=== PATIENT | female | born 1955 | race Caucasian/White ===

== ENCOUNTER 2016-07-16 12:37 | Inpatient (IN) | payer OTHER ==
--- NOTE | ~2016-07-16 | CT57 ---
[facility] A Service of [facility] RADIOLOGY TEXT RESULTS PATIENT: LAURIE UP LOCATION: [facility] 341- : 57 UNIT #: [id number] AGE: [address]: Maine Lang MD SEX: F ORDER DR: [id number] [facility] [address] [place], [place] [address] [id number] I MR#: [id number] Acc #: [id number] NAME: LAURIE UP : 1955 SEX: F STUDY DATE/TIME: 07/18/2016 14:14 UNIT: [address] ROOM: [facility] STUDY DESCRIPTION: CT Chest Wo Cont Attending Physician: Maine Lang M.D. Ordering Physician: Maine Lang M.D. Primary Care Physician: Mikey Knight M.D. MEDICAL IMAGING REPORT This report is preliminary unless electronic signature is present EXAM CT of the chest without contrast. DATE OF EXAM 07/18/2016 INDICATIONS Right-sided chest pain, shortness breath for [address] images were obtained from the thoracic inlet through the dome of the diaphragm. No intravenous contrast material was administered. NOTE: This CT exam was performed with one or more of the following radiation dose reduction techniques: automatic exposure control, adjustment of mA and/or kV according to patient size, and iterative reconstruction. FINDINGS Since the prior examination, a right-sided chest tube has been placed which curves over the diaphragm and is directed posteriorly into the right hemithorax. Right pleural effusion is noted. However, it is difficult to differentiate it from adjacent lung. There is worsening consolidation within the right lung some of which may be related to pleural fluid, but I think some of it may simply reflect airspace disease. Certainly there is now complete obstruction of the patient's bronchus to the right lower lobe. Full assessment is limited due to the lack of intravenous contrast material as well as the patient's body habitus. Background emphysematous changes are suspected. There is left basilar atelectasis and possibly trace left pleural effusion. Thyroid gland and trachea appear within normal limits. There is a small hiatal hernia. I think the thoracic aorta measures within normal size limits. Mediastinal lymph nodes, I do not think are pathologically enlarged. Images through the upper abdomen again demonstrate a right renal cyst. I do not see any acute STS. [facility] A Service of [facility] RADIOLOGY TEXT RESULTS PATIENT: LAURIE UP LOCATION: A 341-01 : 57 UNIT #: [id number] AGE: [address]: Maine Lang MD SEX: F ORDER DR: abnormalities within the upper abdomen. Review of bony windows does not demonstrate any aggressive osseous abnormalities. IMPRESSION This patient has increasing opacification of the right hemithorax when compared to the prior study from July 16, 2016. There has been interval placement of a right-sided chest tube. Volume of pleural fluid I think is probably stable, and I think the opacification may be due to increasing consolidation within the right lung, especially given complete obstruction of the bronchus to the right lower lobe. Patient potentially may benefit from bronchoscopy, if not previously performed. Please note exam is difficult to interpret due to both the patient's body habitus and exam technique. Please see the body of the report for any other additional incidental findings. Dictated by... Iveth Monroy M.D. THIS IS AN ELECTRONICALLY VERIFIED REPORT Iveth Monroy M.D. at 07/19/2016 1:37 PM AFF/jcelestino TD: 07/18/2016 15:52 JOB #: [id number] MEDICAL IMAGING REPORT COPY
--- NOTE | ~2016-07-16 | CR72 ---
[facility] A Service of [facility] RADIOLOGY TEXT RESULTS PATIENT: LAURIE UP LOCATION: [address] : [birth year] UNIT #: [id number] AGE: [address]: Maine Lang MD SEX: F ORDER DR: [id number] [facility] [address] [place], [place] [address] [id number] I MR#: [id number] Acc #: [id number] NAME: LAURIE UP. : 1955 SEX: F STUDY DATE/TIME: 07/21/2016 15:19 UNIT: [facility] ROOM: [facility] STUDY DESCRIPTION: CR Chest Single View Portable Attending Physician: Maine Lang M.D. Ordering Physician: Brandt Fung M.D. Primary Care Physician: Mikey Knight M.D. MEDICAL IMAGING REPORT This report is preliminary unless electronic signature is present EXAM Portable chest HISTORY ETT placement. Postop thoracotomy. Pleural effusion. FINDINGS ETT tip is approximately 2 cm above the cal, with its tip partly obscured by overlying monitor lead. 2 right chest tubes extend over the right upper lung. Small right pleural effusion with [id number] atelectasis or infiltrate in the right lower lung and improved aeration of the right lung as compared to earlier today. There is probably minimal atelectasis or scarring in the lateral left base. Dictated by... Kahlil Snyder M.D. THIS IS AN ELECTRONICALLY VERIFIED REPORT Kahlil Snyder M.D. at 07/21/2016 11:38 PM DFL/psc TD: 07/21/2016 18:35 JOB #: [id number] MEDICAL IMAGING REPORT COPY
--- NOTE | ~2016-07-16 | DS ---
Unit #: [id number] #: [id number] Patient: LAURIE UP [id number] [address] [place], [place] [address] [id number] I MR#: [id number] NAME: LAURIE UP ROOM: [facility] Age: 60 Sex: F Admission Date: 07/16/2016 : 1955 Discharge Date: 07/26/2016 Attending Physician: Jamie Son M.D. Primary Care Physician: Mikey Knight M.D. DISCHARGE SUMMARY ADDENDUM The patient did go down on 07/21/2016 for flexible fiberoptic bronchoscopy with right video-assisted thoracoscopy and decortication. The patient had placement of two #28 chest tubes. She was intubated for the procedure and remained intubated until the 07/22/2016, at which time, she was extubated without difficulty. The patient has done very well postoperatively. Her acute hypoxic respiratory failure has continued to improve and at this time, she is saturating 92% on room air. Her chest tubes had been removed and chest x-ray this morning shows a stable right lower lobe infiltrate with a right pleural effusion. Ultimately, the patient's cultures grew strep milleri. Her antibiotics were revised such that she is now being sent home on oral Augmentin. The patient is up and ambulating without difficulty. She will have a home O2 evaluation to determine if she needs oxygen with exertion. This will be provided should it be needed. She is being discharged home with home health for PT and OT. She will follow up with Dr. Brandt Fung on 08/08/2016. DISCHARGE MEDICATIONS Bupropion 200 mg p.o. b.i.d., Prozac 20 mg daily, Xanax 1 mg p.o. b.i.d. p.r.n., Norvasc 10 mg daily, Lopressor 25 mg p.o. b.i.d., Zocor 20 mg p.o. q.h.s., ibuprofen 800 mg p.o. q.8 hours p.r.n., hydrocodone/acetaminophen 10/325 one p.o. q.6 hours p.r.n., Prilosec 20 mg p.o. daily, Flexeril 10 mg p.o. q.h.s., Synthroid 0.05 mg p.o. daily, Augmentin 875 mg one p.o. b.i.d. x18 more days. FOLLOWUP As mentioned, the patient will follow up with Dr. Brandt Fung on 08/08/2016 with a chest x-ray done in the morning prior to the appointment. Additionally, she should follow up with Dr. Cher Calderon at the end of antibiotic course. Dictated by... Rainer Cardenas/apoorva Unit #: [id number] #: [id number] Patient: LAURIE UP TD: 07/29/2016 03:06 JOB #: [id number] DISCHARGE SUMMARY X Jamie Son MD X DISCHARGE SUMMARY
--- NOTE | ~2016-07-16 | EKG ---
PATIENT: LAURIE UP UNIT #: [id number] Ventricular Rate: 88 BPM Atrial Rate: 88 BPM P-R Interval: 170 ms QRS Duration: 92 ms Q-T Interval: 374 ms QTC Calculation(Bezet): 452 ms P Madison: 19 degrees Calculated R Madison: 53 degrees Calculated T Madison: 14 degrees Diagnosis Line: Normal sinus rhythm Diagnosis Line: Normal ECG Diagnosis Line: When compared with ECG of 13-JUL-2016 17:13, Diagnosis Line: (unconfirmed) Diagnosis Line: No significant change was found Diagnosis Line: Confirmed by ANITRA JACOBSON MD ([id number]) on 07/17/2016 Diagnosis Line: 7:17:07 AM INTERPRETING MD: INDIRA PALOMARES
--- NOTE | ~2016-07-16 | CO ---
Unit #: [id number] #: [id number] Patient: LAURIE UP [id number] [address] [place], [place] [address] [id number] I MR#: [id number] NAME: LAURIE UP. ROOM: 341 Age: 60 Sex: F Admission Date: 07/16/2016 : 1955 Attending Physician: Maine Lang M.D. Primary Care Physician: Mikey Knight M.D. Consultation Date: 07/17/2016 CONSULTATION REPORT REASON FOR CONSULTATION Dysphagia. HISTORY Ms. Up is a 60-year-old white female who presented with a history of increasing shortness of breath and found to have right sided large pleural effusion. She is status post placement of a chest tube and thoracentesis and underlying empyema on a background of pneumonia has been suspected. She also mentions a history of dysphagia to solids progressively getting worse for the past six months. There is also some problem with liquids lately. She denies any history of weight loss. At the present time, the patient is having local pain from the chest tube insertion and is less concerned about dysphagia than about the fact that she has shortness of breath. In fact, her initial presentation was increasing shortness of breath and pleuritic pain on the right side along with right shoulder pain. She also had chills and low grade fever. PAST MEDICAL HISTORY Significant for: 1. Hypertension. 2. Depression. 3. Fibromyalgia. PAST SURGICAL HISTORY Previous surgeries include: 1. Tonsillectomy. 2. Tubal ligation. SOCIAL HISTORY The patient does not smoke and drinks occasionally. FAMILY HISTORY None of colon, pancreatic cancer of liver disease. There is a history of heart disease in the family. MEDICATIONS Medications at home included: 1. Paxil. 2. Zocor. 3. Prilosec. 4. Cymbalta. 5. Lopressor. 6. Flexeril. 7. Norvasc. Unit #: [id number] #: [id number] Patient: LAURIE UP 8. Xanax. ALLERGIES She is allergic to penicillin. REVIEW OF SYSTEMS A detailed review of organ systems does not reveal any recent weight loss. There is a history of fever and chills but no rigors. No history of cough or expectoration but a history of shortness of breath. No history of hemoptysis, no history of dysuria, hematuria or pyuria. No history of overt GI bleed. No history of bolus meat impactions in the esophagus but a history of increasing dysphagia to solids. No history of skin rash, aphthous ulcers in the mouth or reactive arthritis. PHYSICAL EXAMINATION GENERAL APPEARANCE: She is awake, alert and oriented and laying supine, still in bed. VITAL SIGNS: Her temperature is 98, pulse is 95 per minute and regular, respiratory rate 16 and blood pressure is 121/71. She weighs 108 pounds. She has mild pallor, there being no icterus, lymphadenopathy or peripheral edema. CARDIOVASCULAR EXAMINATION: Normal heart sounds. No murmurs. LUNGS: Auscultation of the lungs reveal diminished air entry in the lung base, especially on the right side. ABDOMEN: Soft, minimally obese and nontender. Liver and spleen are not palpable. Bowel sounds normal. DIAGNOSTIC STUDIES LABORATORY: Lab evaluation shows a hemoglobin of 9.5, white count of 16,000 with a left shift and a platelet count of 505. INR is 1.0. Serum chemistry shows a normal BUN and creatinine and a potassium of 3.1. LFTs are normal. Albumin is 3.0. IMAGING: Her chest films suggest large pleural effusion along with atelectasis and a possibility of empyema. CLINICAL IMPRESSION 1. Patient with probably synpneumonic effusion or empyema, status post thoracentesis. 2. Underlying hypertension and fibromyalgia. 3. New onset of dysphagia for the past six months which is getting worse particularly and is mostly present with solids. The patient may have esophageal stricture, either benign or malignant, and does need an upper endoscopy and a dilation for definitive diagnosis and treatment. She, however, wishes to wait for at least a day before proceeding with endoscopy. This is quite reasonable considering she had a chest tube insertion a short while ago. Thank you very much for asking me to see this pleasant woman. I appreciate the consult. Dictated byAshley Marion M.D. Unit #: [id number] #: [id number] Patient: LAURIE UP ALAINA/brigid TD: 07/18/2016 11:53 JOB #: [id number] CONSULTATION REPORT X Suraj Marion MD CONSULTATION REPORT
--- NOTE | ~2016-07-16 | CR63 ---
[facility] A Service of [facility] RADIOLOGY TEXT RESULTS PATIENT: LAURIE UP LOCATION: [facility] : 57 UNIT #: [id number] AGE: [address]: Low Mclaughlin MD SEX: F ORDER DR: [id number] [facility] [address] [place], [place] [address] [id number] E MR#: [id number] Acc #: [id number] NAME: LAURIE UP : 1955 SEX: F STUDY DATE/TIME: 07/16/2016 UNIT: [facility] ROOM: STUDY DESCRIPTION: CR Chest 2 View Attending Physician: Low Mclaughlin M.D. Ordering Physician: Low Mclaughlin M.D. Primary Care Physician: Mikey Knight M.D. MEDICAL IMAGING REPORT This report is preliminary unless electronic signature is present EXAM Chest 2 views 07/16/2016 at 13:20 hours HISTORY 60-year-old woman with 4-5 day history of fever, shortness of air and chills. COMPARISON 07/13/2016 FINDINGS Upright PA and lateral views of the chest demonstrates low lung volumes with prominence of the cardiac silhouette tortuous aorta unchanged. There is airspace density right greater than left lung base increased on the right, decreased on the left. There is a moderate right pleural effusion increased from 07/13/2016. Presence of right lower lobe pneumonia with parapneumonic effusion or empyema cannot be excluded. IMPRESSION Worsening airspace density at the right lung base and improving airspace density at the left lung base. There is an increasing right pleural effusion. Findings are concerning for right lower lobe pneumonia with parapneumonic effusion or empyema. Findings have progressed on the right since 07/13/2016. STAT * RESULT Dictated by... Betty Campbell M.D. [facility] A Service of [facility] RADIOLOGY TEXT RESULTS PATIENT: LAURIE UP [id number] 57 UNIT #: [id number] AGE: [address]: Low Mclaughlin MD SEX: F ORDER DR: THIS IS AN ELECTRONICALLY VERIFIED REPORT Betty Campbell M.D. at 07/16/2016 2:28 PM Luis TD: 07/16/2016 13:49 JOB #: [id number] MEDICAL IMAGING REPORT COPY
--- NOTE | ~2016-07-16 | CR72 ---
[facility] A Service of [facility] RADIOLOGY TEXT RESULTS PATIENT: LAURIE UP LOCATION: [facility] : 57 UNIT #: [id number] AGE: [address]: Maine Lang MD SEX: F ORDER DR: [id number] [facility] [address] [place], [place] [address] [id number] I MR#: [id number] Acc #: [id number] NAME: LAURIE UP. : 1955 SEX: F STUDY DATE/TIME: 07/17/2016 18:33 UNIT: [address] ROOM: [facility] STUDY DESCRIPTION: CR Chest Single View Portable Attending Physician: Maine Lang M.D. Ordering Physician: Maine Lang M.D. Primary Care Physician: Mikey Knight M.D. MEDICAL IMAGING REPORT This report is preliminary unless electronic signature is present EXAM AP radiograph of the chest. DATE OF EXAM 07/17/2016 HISTORY Chest tube placement. REPORT AP radiograph of the chest presented. COMPARISON Comparison from earlier on the same date. FINDINGS Interval placement of right pleural drain. Stable cardiomediastinal silhouette. The left lung is well inflated and clear. Decreased but not yet completely resolved right pleural effusion status post pleural drain placement. There is probably moderate volume pleural effusion remaining. Patchy and band-like densities in the underlying right lung probably atelectatic in nature and related to the pleural effusion. Mild soft tissue prominence in the right suprahilar region. Probably projectional artifact related to normal vascular structures. CT examination in of yesterday showed no significant adenopathy in this region. Continued attention at followup is recommended. There is no pneumothorax. Dictated by... Efrain Larios M.D. [facility] A Service of [facility] RADIOLOGY TEXT RESULTS PATIENT: LAURIE UP LOCATION: [facility] : 57 UNIT #: [id number] AGE: [address]: Maine Lang MD SEX: F ORDER DR: THIS IS AN ELECTRONICALLY VERIFIED REPORT Efrain Larios M.D. at 07/18/2016 2:12 PM Ernesto TD: 07/17/2016 21:49 JOB #: [id number] MEDICAL IMAGING REPORT COPY
--- NOTE | ~2016-07-16 | BMI ---
[facility] Nutrition Therapy DATE: 07/17/16 Patient: LAURIE UP Physician: FAYE Address: [address] [place] [address] Room/Bed: [address] [place] [address], Zip: [place] [address] Admit Date: 07/16/16 Date of : 57 Height: 5 3 Weight: 235 106.6 HIGH BMI NOTE: ANTHROPOMETRICS: Ht: 63" Wt: 106.6 kg BMI: 41.6 INTERVENTION: 1. NPO RECOMMENDATIONS: 1. Once medically feasible, resume heart healthy diet as tolerated in order to promote gradual weight loss. Respectfully, MARTIN STILL RD, LD Food and Nutritional Services [facility] cc: client file
--- NOTE | ~2016-07-16 | CT16 ---
[facility] A Service of [facility] RADIOLOGY TEXT RESULTS PATIENT: LAURIE UP LOCATION: [facility] 341-01 : 57 UNIT #: [id number] AGE: [address]: Maine Lang MD SEX: F ORDER DR: [id number] [facility] [address] [place], [place] [address] [id number] E MR#: [id number] Acc #: [id number] NAME: LAURIE UP. : 1955 SEX: F STUDY DATE/TIME: 07/16/2016 14:54 UNIT: [facility] ROOM: STUDY DESCRIPTION: CT Angio Chest for PE Attending Physician: Low Mclaughlin M.D. Ordering Physician: Low Mclaughlin M.D. Primary Care Physician: Mikey Knight M.D. MEDICAL IMAGING REPORT This report is preliminary unless electronic signature is present EXAM CT angiogram chest with IV contrast HISTORY Shortness of air. Fever and chills for [address] exam was performed with one or more of the following radiation dose reduction techniques: automatic control, adjustment of mA and/or kV according to patient size, and iterative reconstruction. FINDINGS IV contrast enhanced CT angiogram of the chest was performed with 3-D reconstructions. There is a moderate-sized right pleural effusion. Nearly complete atelectasis of the right lower lobe. Mild multifocal subsegmental linear atelectasis in the right upper lobe and, to a lesser degree in the medial and inferior left lower lobe. No pulmonary embolus. Normal caliber thoracic aorta. No mediastinal or hilar adenopathy. Small hiatal hernia. 4.2 cm cyst in the medial and upper pole of the right kidney. IMPRESSION 1. No pulmonary embolus. 2. Moderate-sized right pleural effusion with nearly complete atelectasis of the right lower lobe and additional mild multifocal subsegmental atelectasis in the right upper lobe and left lower lobe. 3. Small hiatal hernia. Dictated by... Kahlil Snyder M.D. [facility] A Service of [facility] & [facility] RADIOLOGY TEXT RESULTS PATIENT: LAURIE UP LOCATION: [facility] 341- : 57 UNIT #: [id number] AGE: [address]: Maine Lang MD SEX: F ORDER DR: THIS IS AN ELECTRONICALLY VERIFIED REPORT Kahlil Snyder M.D. at 07/17/2016 7:25 PM DFL/rnradha TD: 07/16/2016 17:02 JOB #: [id number] MEDICAL IMAGING REPORT COPY
--- NOTE | ~2016-07-16 | TOC ---
Unit #: [id number] #: [id number] Patient: LAURIE UP [id number] [address] [place], [place] [address] [id number] I MR#: [id number] NAME: LAURIE UP. ROOM: [facility] Age: 60 Sex: F Admission Date: 07/16/2016 : 1955 Attending Physician: Jamie Son M.D. Primary Care Physician: Mikey Knight M.D. TRANSFER OF CARE SUMMARY DATE July 20, 2016. REASON FOR ADMISSION Shortness of breath. HISTORY OF PRESENT ILLNESS/HOSPITAL COURSE The patient is a 60-year-old female, who presented secondary to respiratory distress. Initially, her white count was noted to be 16,000, hemoglobin 9.5. She underwent a CT angiogram of her chest which did reveal right-sided pleural effusion. Therefore, consultation was placed to Dr. Calderon. Pulmonary services, who after evaluation, placed consultation to Dr. Fung. After review, consideration for right pleural effusion as well as empyema was made. The patient underwent thoracentesis with only very little, approximately [address] Fung reviewed CT angiogram as well as CT chest without contrast on July 18, 2016. Chest tube was placed on the right side. At the present time, further management has been coordinated for the chest in consideration by thoracic surgery services. The patient's antibiotics are at the discretion of Dr. Calderon of pulmonary services. Today, her white count is now 23,800, hemoglobin is 9.4. Patient also stated that she had episodes of dysphagia. We placed consultation to Dr. Marion. He recommended upper GI endoscopy; however, the patient states that because of her right pleural effusion as well as empyema and compressive atelectasis, she stated that she would followup as an outpatient for her EGD and therefore, that has been placed on hold. DIAGNOSES At the present time, her current clinical diagnoses are as follows: 1. Acute respiratory failure. 2. Right-sided pleural effusion/empyema, status post chest tube placement as well as thoracentesis. Unit #: [id number] #: [id number] Patient: LAURIE UP 3. Dysphagia. 4. Obesity. 5. Compressive atelectasis. 6. Depression. Dictated by... Rainer Villa TD: 07/22/2016 10:20 JOB #: [id number] TRANSFER OF CARE SUMMARY X Maine Lang MD X TRANSFER OF CARE SUMMARY
--- NOTE | ~2016-07-16 | CR72 ---
[facility] A Service of [facility] & [facility] RADIOLOGY TEXT RESULTS PATIENT: LAURIE UP LOCATION: [facility] 341-01 : 57 UNIT #: [id number] AGE: [address]: Maine Lang MD SEX: F ORDER DR: [id number] [facility] [address] [place], [place] [address] [id number] I MR#: [id number] Acc #: [id number] NAME: LAURIE UP. : 1955 SEX: F STUDY DATE/TIME: 07/20/2016 6:11 UNIT: [address] ROOM: [facility] STUDY DESCRIPTION: CR Chest Single View Portable Attending Physician: Maine Lang M.D. Ordering Physician: Maine Lang M.D. Primary Care Physician: Mikey Knight M.D. MEDICAL IMAGING REPORT This report is preliminary unless electronic signature is present EXAM Portable chest. HISTORY Chest tube placement. COMPARISON 07/17/2016 FINDINGS AP portable view of the chest demonstrates a right chest tube or pleural drain in the right lung base, unchanged. Continued loss of the right hemidiaphragm blunting the right CP angle which may represent a small right effusion and right basilar atelectasis. Continued diffuse haziness over the right lung which may represent a combination of infiltrate or atelectasis. Left lung is clear, though overall lung volumes appear diminished. The heart and mediastinum are unremarkable. No visible pneumothorax. Dictated by... Oanh Vences M.D. THIS IS AN ELECTRONICALLY VERIFIED REPORT Oanh Vences M.D. at 07/20/2016 3:04 PM MILLA/dalton TD: 07/20/2016 13:42 JOB #: [id number] MEDICAL IMAGING REPORT COPY
--- NOTE | ~2016-07-16 | CR72 ---
[facility] A Service of [facility] RADIOLOGY TEXT RESULTS PATIENT: LAURIE UP LOCATION: [address] : [birth year] UNIT #: [id number] AGE: [address]: Jamie Son MD SEX: F ORDER DR: [id number] [facility] [address] [place], [place] [address] [id number] I MR#: [id number] Acc #: [id number] NAME: LAURIE UP : 1955 SEX: F STUDY DATE/TIME: 07/23/2016 6:43 UNIT: [facility] ROOM: [facility] STUDY DESCRIPTION: CR Chest Single View Portable Attending Physician: Jamie Son M.D. Ordering Physician: Brandt Fung M.D. Primary Care Physician: Mikey Knight M.D. MEDICAL IMAGING REPORT This report is preliminary unless electronic signature is present EXAM Frontal chest, 07/23/2016 INDICATION 60-year-old female with shortness of air for a week. Right-sided shoulder pain. Status post video assisted thoracoscopy procedure and right-sided chest tube placement on July 21. TECHNIQUE Frontal chest COMPARISON 07/22/2016 FINDINGS 2 right-sided chest tubes present. Cardiac silhouette enlarged but stable. Lung volumes remain low. Interstitial and alveolar opacities in the right lung and a right-sided effusion are unchanged. There is some patchy atelectasis or infiltrate in the left lung base not significantly changed. No pneumothorax. IMPRESSION 1. 2 right-sided chest tubes are present. There is no pneumothorax. 2. No other significant interval change. Dictated by... Fei Franz M.D. THIS IS AN ELECTRONICALLY VERIFIED REPORT Fei Franz M.D. at 07/24/2016 3:11 PM Simone TD: 07/23/2016 11:54 [facility] A Service of [facility] RADIOLOGY TEXT RESULTS PATIENT: LAURIE UP LOCATION: [id number] [id number] : [birth year] UNIT #: [id number] AGE: [address]: Jamie Son MD SEX: F ORDER DR: JOB #: [id number] MEDICAL IMAGING REPORT COPY
--- NOTE | ~2016-07-16 | XA203 ---
[facility] A Service of [facility] RADIOLOGY TEXT RESULTS PATIENT: LAURIE UP LOCATION: [facility] 341-01 : [birth year] UNIT #: [id number] AGE: [address]: Maine Lang MD SEX: F ORDER DR: [id number] [place] [address] [facility]. [place], [place] [address] [id number] I MR#: [id number] Acc #: [id number] NAME: LAURIE UP. : 1955 SEX: F STUDY DATE/TIME: 07/17/2016 16:01 UNIT: [address] ROOM: [facility] STUDY DESCRIPTION: XA Thoracentesis Attending Physician: Maine Lang M.D. Ordering Physician: Maine Lang M.D. Primary Care Physician: Mikey Knight M.D. MEDICAL IMAGING REPORT This report is preliminary unless electronic signature is present EXAM Ultrasound-guided right thoracentesis INDICATION 60-year-old female with right pleural effusion. TECHNIQUE The risks, benefits and alternatives of the procedure were discussed with the patient. Informed consent was obtained. In the procedure room, a time-out was performed confirming correct patient and procedure. All elements of maximum sterile-barrier technique utilized according to guidelines appropriate for the procedure. FINDINGS Ultrasound of the right posterior hemithorax was performed. This demonstrated a small right pleural effusion. The overlying skin was prepped and draped in the usual sterile fashion. 1% lidocaine was utilized to anesthetize the skin and underlying subcutaneous tissues. Next under ultrasound guidance, a 5-Ghanaian Yueh catheter was inserted into the pleural space and only 35 mL of serosanguineous fluid was able to be removed and it was sent to the lab for the requested studies. The needle was removed and a sterile dressing was applied. No immediate complications. IMPRESSION Technically successful diagnostic right thoracentesis. Dictated by... Riki Vences M.D. THIS IS AN ELECTRONICALLY VERIFIED REPORT [facility] A Service of [facility] RADIOLOGY TEXT RESULTS PATIENT: LAURIE UP LOCATION: [facility] 341-01 : [birth year] UNIT #: [id number] AGE: [address]: Maine Lang MD SEX: F ORDER DR: Riki Vences M.D. at 07/19/2016 7:45 AM STEVO/sukhdeep TD: 07/18/2016 09:42 JOB #: [id number] MEDICAL IMAGING REPORT COPY
--- NOTE | ~2016-07-16 | CO ---
Unit #: [id number] #: [id number] Patient: LAURIE UP [id number] [facility] [address] [facility] [place] [facility]. [place], [place] [address] [id number] I MR#: [id number] NAME: LAURIE UP. ROOM: 341 Age: 60 Sex: F Admission Date: 07/16/2016 : 1955 Attending Physician: Maine Lang M.D. Primary Care Physician: Mikey Knight M.D. Requesting Physician: Goi Ortiz M.D. Consultation Date: 07/17/2016 CONSULTATION REPORT The patient is a 60-year-old, white female, who was seen in the emergency room at [facility] on 07/13/2016, secondary to right chest and shoulder pain, along with some shortness of breath. She was felt at that time to have cervical radiculopathy and was discharged home on Prednisone. She presented to the [facility] emergency room on 07/16/2016 secondary to worsening right pleuritic chest pain and increased shortness of breath. A chest CT scan was obtained in her workup, which showed a moderate sized right pleural effusion with associated atelectasis of the lung. She was admitted to the hospital and placed on Rocephin and Zithromax. A right thoracentesis was performed today with only a small amount of fluid being obtained. The pH of the fluid, however, was 6.9 and in view of this, it was felt that we may be dealing with an empyema. I was asked to see the patient at this time for possible chest tube insertion. Her antibiotics were switched today to vancomycin and cefepime. ALLERGIES The patient is allergic to penicillin. PAST MEDICAL HISTORY She has a history of depression, fibromyalgia, and hypertension. PAST SURGICAL HISTORY Tubal ligation, tonsillectomy and adenoidectomy, and wiring of the jaw. SOCIAL HISTORY She denies smoking cigarettes. She drinks alcohol only occasionally. She denies using any illicit drugs. FAMILY HISTORY Positive for heart disease and cancer. HOME MEDICATIONS Xanax, Norvasc, Flexeril, Cymbalta, Lopressor, Prilosec, Zocor, and Paxil. REVIEW OF SYSTEMS Essentially negative except for those things stated in the present illness and past history. PHYSICAL EXAMINATION VITAL SIGNS: The patient's temperature is 99.3. The pulse is 92, respirations are 20 and blood pressure is 121/71. HEENT: Normocephalic without lesions. Pupils were equally round and reactive to light. Extraocular movements are full. Unit #: [id number] #: [id number] Patient: LAURIE UP NECK: Supple without adenopathy or jugular venous distention. LUNGS: Decreased breath sounds at the right base. HEART: Regular rhythm without murmurs. ABDOMEN: Soft and nontender without masses and with good bowel sounds. EXTREMITIES: No cyanosis or edema present. NEUROLOGIC: No focal neurologic deficits on exam. IMPRESSION 1. Probable right-sided pneumonia with associated right pleural effusion with a low pH of 6.9. One with have to worry about the possibility of an empyema. 2. History of depression. 3. Fibromyalgia. 4. History of hypertension. PLAN At this point to proceed with a right chest tube insertion to see if we can drain some additional fluid. If we can get the chest tube positioned in the fluid, we may consider then instilling tPA and Pulmozyme to help liquify the collection. Will also plan to await the cultures and cytology on the fluid that was sent. In the meantime, she will continue on IV antibiotics as ordered. Dictated by... Rainer Cheek/jose a TD: 07/18/2016 07:28 JOB #: [id number] CC: Cher Calderon M.D. CONSULTATION REPORT X Brandt Fung MD X CONSULTATION REPORT
--- NOTE | ~2016-07-16 | CO ---
Unit #: [id number] #: [id number] Patient: LAURIE UP [id number] [address] [place], [place] [address] [id number] I MR#: [id number] NAME: LAURIE UP. ROOM: 341 Age: 60 Sex: F Admission Date: 07/16/2016 : 1955 Attending Physician: Maine Lang M.D. Primary Care Physician: iMkey Knight M.D. Consultation Date: 07/18/2016 CONSULTATION REPORT REASON FOR CONSULTATION Pleural effusion. CHIEF COMPLAINT Shortness of breath. HISTORY 60-year-old female with a past medical history of depression, fibromyalgia, hypertension, who presents with a complain of cough, shortness of breath and increasing sputum production for the last two to three days, admitted with complaint of pleural effusion and pneumonia. I am seeing the patient at bedside complaining of shortness of breath and generalized weakness. No nausea, vomiting, diarrhea. No chest pain. REVIEW OF SYSTEMS Positive pallor. No edema. No cyanosis. No jaundice. The rest is as per history of present illness. The rest of the twelve point review of system has been reviewed and is negative. PAST MEDICAL HISTORY The patient had fibromyalgia and hypertension. PAST SURGICAL HISTORY Jaw wired, tonsillectomy, tubal ligation. SOCIAL HISTORY Nonsmoker. No alcohol. No drug abuse. FAMILY HISTORY Positive for heart disease and cancer. ALLERGIES Penicillin. HOME MEDICATIONS Xanax, Norvasc, Flexeril, Cymbalta, Lopressor, Prilosec, Zocor and Paxil. PHYSICAL EXAMINATION VITAL SIGNS: Temperature is 98, pulse 67, respirations 12, blood pressure 130/70. NEUROLOGIC: Awake, alert and oriented. No neuro deficit. HEENT: PERRLA. +1. NECK: Supple. CHEST: Bilateral air entry. Bilateral mild rhonchi. Unit #: [id number] #: [id number] Patient: LAURIE UP GI: Nontender, soft. Bowel sounds positive. EXTREMITIES: No edema. SKIN: No rashes, no ulcers. LYMPHATICS: No lymphadenopathy. MUSCULOSKELETAL: No deformity. DIAGNOSTIC STUDIES Labs and imaging has been reviewed. ASSESSMENT AND PLAN 1. Rule out empyema. 2. Right-sided pleural effusion. 3. (1) pneumonia. 4. Hypernatremia. 5. Hyperkalemia. PLAN 1. Admit the patient. 2. Continue broad spectrum IV antibiotics. 3. Thoracentesis today. 4. GI and DVT prophylaxis. 5. Patient will be closely monitored. 6. Please see orders for detailed plan. Thank you very much for this consultation. We will continue to monitor patient very closely. Dictated by... Rainer Wang/jose a TD: 07/18/2016 10:06 JOB #: [id number] CONSULTATION REPORT X Cher Calderon MD CONSULTATION REPORT
--- NOTE | ~2016-07-16 | CR72 ---
[facility] A Service of [facility] RADIOLOGY TEXT RESULTS PATIENT: LAURIE UP LOCATION: [place] [address] : [birth year] UNIT #: [id number] AGE: [address]: Jamie Son MD SEX: F ORDER DR: [id number] [facility] [address] [facility]. [place], [place] [address] [id number] I MR#: [id number] Acc #: [id number] NAME: LAURIE UP. : 1955 SEX: F STUDY DATE/TIME: 07/24/2016 9:28 UNIT: [facility] ROOM: [facility] STUDY DESCRIPTION: CR Chest Single View Portable Attending Physician: Jamie Son M.D. Ordering Physician: Rona Elliott A.P.R.N. Primary Care Physician: Mikey Knight M.D. MEDICAL IMAGING REPORT This report is preliminary unless electronic signature is present EXAM AP portable chest 07/24/2016. HISTORY Postop lung surgery. Chest tube removal. TECHNIQUE AP portable upright chest x-ray. FINDINGS The exam shows postop changes right lung surgery. 2 right chest tubes have been removed since the previous study obtained yesterday, there is no visible pneumothorax. Soft tissue air is present in the right lateral chest wall. Dense infiltrate and volume loss in the right lung base with elevation of the right hemidiaphragm, unchanged. Left lung clear. IMPRESSION No pneumothorax following chest tube removal. Dictated by... Aubrey Carrillo M.D. THIS IS AN ELECTRONICALLY VERIFIED REPORT Aubrey Carrillo M.D. at 07/24/2016 4:00 PM ESTRADA/leah TD: 07/24/2016 11:59 JOB #: [id number] MEDICAL IMAGING REPORT COPY
--- NOTE | ~2016-07-16 | OR ---
Unit #: [id number] #: [id number] Patient: LAURIE UP [id number] [address] [place], [place] [address] [id number] I MR#: [id number] NAME: LAURIE UP. ROOM: [facility] Date of Procedure: 07/21/2016 Admission Date: 07/16/2016 Surgeon: Brandt Fung M.D. : 1955 Attending Physician: Jamie Son M.D. Primary Care Physician: Mikey Knight M.D. OPERATIVE REPORT PREOPERATIVE DIAGNOSIS Right-sided pneumonia with a loculated right pleural effusion. POSTOPERATIVE DIAGNOSIS Right-sided pneumonia with a loculated right pleural effusion. PROCEDURES PERFORMED Flexible fiberoptic bronchoscopy; right video-assisted thoracoscopy with decortication. ANESTHESIA General. ESTIMATED BLOOD LOSS About 250 mL. DRAINS Two #28 chest tubes. COMPLICATIONS None. DESCRIPTION OF PROCEDURE The patient was taken to the operating room and placed on the operating room table in a supine position. After appropriate monitoring lines had been placed, general endotracheal anesthesia was then induced per the Anesthesia Department. Flexible fiberoptic bronchoscopy was performed per the endotracheal tube per a side-port adapter placed on the tube. There was some mild edema of the distal trachea and cal. There was some mild erythema of the mucosa of the left mainstem bronchus. The left upper lobe and left lower lobe were both examined to their subsegmental bronchi level and found to be within normal limits. The right upper lobe was examined to its subsegmental bronchi level and found to be within normal limits. The right middle lobe was found to be open and with only mild erythema of the mucosa. There was moderate erythema and edema of the mucosa of the right lower lobe with narrowing of the segmental bronchi. The bronchoscope was then removed. The single-lumen endotracheal tube was removed and replaced with a double-lumen endotracheal tube. Adequate positioning of this tube was ensured using the pediatric bronchoscope. The patient was placed on the operating room table in a left lateral decubitus position. A rolled sheet was placed beneath the left axillary area. The patient was secured in place on the operating room table using Unit #: [id number] #: [id number] Patient: LAURIE UP a roman bag as well as tape across the right hip. The right arm was supported on an arm support. The right chest tube that was in place was removed. The right chest was prepped with DuraPrep and draped in a sterile fashion. About a 5 to 6 cm skin incision was made in the anterior axillary line over the fifth intercostal space. The incision was carried down through the subcutaneous tissue with hemostasis being obtained using the Bovie. The muscle and fascial layers were also cut using the Bovie and the pleura that was somewhat thickened was entered and extended the full length of the incision. It should be stated that the patient had problems throughout the procedure maintaining good oxygen saturations on one-lung anesthesia, and we had to go back on two-lung anesthesia at times to catch up with her O2 saturations. The lung at the incision sites was gently dissected free from the chest wall. A suction catheter was then used to gently dissect the lung down from the chest wall. After the lung was freed up somewhat in the lower chest, a 1.5 cm skin incision was made in the posterior axillary line at about the 6 or 7th intercostal space. The incision was carried down through the subcutaneous tissue with hemostasis being obtained using the Bovie. A Tonsil clamp was used to enter the pleural space. It was estimated to be about the sixth intercostal space. A trocar introducer was inserted and the thoracoscope then passed per this trocar introducer. There was quite a lot of gelatinous exudative material present in the pleural space especially in the posterior gutter. There was also a somewhat fibrous peel covering the lower portion of the right upper lobe and almost the entire right lower lobe and right middle lobe. A large cupped forceps was used to remove as much of the free gelatinous material from the pleural space. Portions of this material were sent for cytology as well as cultures. A Tonsil clamp was used to separate some of the pleural peel from the lung, and this was further using a Lyles dissector. As the pleural peel was freed up from the lung, it was removed from the chest using the large cupped biopsy forceps. At the completion of the procedure, most of the pleural space had been cleared of the collection and the lung had been freed up from the pleural peel in most of the areas except for a small amount at the inferior portion where most of the consolidation and infiltrate in the lung was present. After adequate hemostasis had been ensured, the chest was irrigated with warm sterile water. This process was repeated about 3 times. Following this, two #28 chest tubes were inserted and brought out through separate stab wounds in the lower chest. They were sutured in place to the skin using 2-0 silk suture. The incision was then closed using 0 Vicryl for the muscle and fascial layer, the subcutaneous tissue was closed using running layers of 2-0 and 3-0 Vicryl. The skin edges were reapproximated using running 4-0 Vicryl subcuticular stitch. Sterile dressings were applied. Estimated blood loss in the procedure was about 250 mL. Sponge and needle counts in the operation were correct. The patient was then transported to her bed in a supine position. Following this, the double-lumen endotracheal tube was switched back to a single-lumen endotracheal tube. The patient was then transported to the recovery room in satisfactory condition. Dictated by... Rainer Cheek/apoorva TD: 07/22/2016 02:33 JOB #: [id number] Unit #: [id number] #: [id number] Patient: LAURIE UP OPERATIVE REPORT X Brandt Fung MD X PROCEDURE OPERATIVE NOTE
--- NOTE | ~2016-07-16 | A ---
[facility] Nutrition Therapy DATE: 07/26/16 Patient: LAURIE UP Physician: FAYE Address: [address] [place] [address] Room/Bed: [address] [place] [address], Zip: [place] [address] Admit Date: 07/16/16 Date of : [birth year] Height: 5 3 Weight: 225 102.1 NUTRITIONAL ASSESSMENT: REASON: Length of stay Admitting Dx: 60 y/o female admitted with right lobe PNA PMH: Depression, HTN, fibromyalgia, wired jaw Anthropometrics: Ht: 63", admission wt: 240 lbs, BMI: 41, current wt: 225 lbs Labs: 07/25: Glucose 131 Meds: PPI, KCL, MgSO4, Synthroid, bowel regimen I/O & Bowel function: LBM 07/24 Skin Integrity: CSI right axillary, trace edema BLE Assessment: Chart reviewed, events noted. Patient being assessed due to length of stay, high BMI previously documented on 07/17/16. Patient is on 3L nasal cannula. Note weight loss of 15 lbs since admission if weights are acurate, patient was stage III obese upon admission. She is on a regular diet with chocolate Ensure ordered BID. Patient unavailable x 3 (out of room, working with PT, then in the bathroom). RD spoke with RN who was unsure of the patient's PO intake or why she had Ensure ordered, but states she would check with the aide. Patient not wanting to go to rehab, wants to go home with sister. See RD recs below, will follow to further assess PO intake and nutritional needs. Dx: Stage III obese r/t lifestyle, PMH, diet AEB BMI 41 on admission. Intervention: Healthy heart diet, weight loss Monitoring, Evaluation and Goals: Gradual weight loss towards a healthy BMI range with adequate micro/macronutrient intake. Monitor: Per protocol, criteria to determine if above goal met Recommendations: 1. Consider changing diet to healthy heart to promote a gradual weight loss towards a healthy BMI range. 2. If patient is consuming > 50% of meals please discontinue Ensure supplement. [facility] Nutrition Therapy DATE: 07/26/16 Patient: LAURIE UP Physician: FAYE Address: [address] [place] [address] Room/Bed: [address] [place] [address], Zip: [place] [address] Admit Date: 07/16/16 Date of : [birth year] Height: 5 3 Weight: 225 102.1 3. Please weigh q 3 days for monitoring purposes. RD will follow Mild nutrition risk Respectfully, Aretha Ryan RD, LD [facility] and Nutrition[facility] cc: client file
--- NOTE | ~2016-07-16 | CR71 ---
[facility] A Service of [facility] RADIOLOGY TEXT RESULTS PATIENT: LAURIE UP LOCATION: [facility] 341-01 : 57 UNIT #: [id number] AGE: [address]: Maine Lang MD SEX: F ORDER DR: [id number] [facility] [address] [place], [place] [address] [id number] I MR#: [id number] Acc #: [id number] NAME: LAURIE UP. : 1955 SEX: F STUDY DATE/TIME: 07/17/2016 15:28 UNIT: [address] ROOM: [facility] STUDY DESCRIPTION: CR Chest Single View Attending Physician: Maine Lang M.D. Primary Care Physician: Mikey Knight M.D. MEDICAL IMAGING REPORT This report is preliminary unless electronic signature is present EXAM AP portable chest DATE OF EXAMINATION 07/17/2016 at 1528 HISTORY Status post right thoracentesis today. Shortness of breath. COMPARISON Ultrasound-guided right thoracentesis 07/17/2016. CT chest PE protocol 07/16/2016. PA and lateral chest 07/16/2016. FINDINGS Hazy opacity is seen over the right hemithorax thought to represent layering right pleural effusion, probably extending into the minor fissure. Pleural fluid may be slightly diminished. There is persistent dense opacity in the right base, which may represent atelectasis or pneumonia. Left lung appears clear. Heart size is stable. No pneumothorax is seen. IMPRESSION 1. Slight diminish in right pleural effusion status post thoracentesis performed earlier today. Persistent dense consolidative change or atelectasis in the right lower lobe. 2. No postprocedure pneumothorax. Dictated by... Tri Irby M.D. THIS IS AN ELECTRONICALLY VERIFIED REPORT Tri Irby M.D. at 07/18/2016 7:19 AM ISAIAS/ana [facility] A Service of [facility] RADIOLOGY TEXT RESULTS PATIENT: LAURIE UP LOCATION: A 341-01 : [birth year] UNIT #: [id number] AGE: [address]: Maine Lang MD SEX: F ORDER DR: TD: 07/17/2016 18:27 JOB #: [id number] MEDICAL IMAGING REPORT COPY
--- NOTE | ~2016-07-16 | CR63 ---
[facility] A Service of [facility] RADIOLOGY TEXT RESULTS PATIENT: LAURIE UP LOCATION: [place] [address] : [birth year] UNIT #: [id number] AGE: [address]: Jamie Son MD SEX: F ORDER DR: [id number] [facility] [address] [place], [place] [address] [id number] I MR#: [id number] Acc #: [id number] NAME: LAURIE UP : 1955 SEX: F STUDY DATE/TIME: 07/26/2016 05:18 UNIT: [facility] ROOM: [facility] STUDY DESCRIPTION: CR Chest 2 View Attending Physician: Jamie Son M.D. Ordering Physician: Brandt Fung M.D. Primary Care Physician: Mikey Knight M.D. MEDICAL IMAGING REPORT This report is preliminary unless electronic signature is present EXAM Chest x-ray, 07/26 at 05:18 INDICATION Pleural effusion, shortness of air and chest pain since 07/16/2016. FINDINGS 2 views of the chest are compared with 07/25/2016. Heart size stable. There is some mild atelectasis in the left lung base. There is continued infiltrate in the right lower lobe with a right pleural effusion. This is concerning for pneumonia. It is stable. No pneumothorax. IMPRESSION Stable right lower lobe infiltrate with a right pleural effusion. New minimal left base atelectasis. No pneumothorax. Dictated by... Raymundo Singh Jr., M.D. THIS IS AN ELECTRONICALLY VERIFIED REPORT Raymundo Singh Jr., M.D. at 07/29/2016 7:21 AM DEEP/claudia TD: 07/26/2016 08:48 JOB #: [id number] MEDICAL IMAGING REPORT COPY
--- NOTE | ~2016-07-16 | OR ---
Unit #: [id number] #: [id number] Patient: LAURIE UP [id number] [address] [address] [id number] I MR#: [id number] NAME: LAURIE UP. ROOM: [facility] Date of Procedure: 07/17/2016 Admission Date: 07/16/2016 Surgeon: Brandt Fung M.D. : 1955 Attending Physician: Maine Lang M.D. Primary Care Physician: Mikey Knight M.D. OPERATIVE REPORT PREOPERATIVE DIAGNOSES Right-sided pneumonia with loculated right pleural collection. POSTOPERATIVE DIAGNOSIS Right-sided pneumonia with loculated right pleural collection. PROCEDURE PERFORMED Insertion of #28 trocar right chest tube ANESTHESIA Local 1% Xylocaine. ESTIMATED BLOOD LOSS Less than 5 mL. COMPLICATIONS None. DESCRIPTION OF PROCEDURE The patient was placed in a left lateral decubitus position in her hospital bed. After appropriate monitoring lines had been placed, the right chest was prepped with ChloraPrep and draped in a sterile fashion. After adequate anesthesia had been obtained using local 1% Xylocaine, a small transverse skin incision was made in the right lateral chest. A tonsil clamp was used to spread through the subcutaneous tissue and down through the intercostal muscles of what seemed to be intercostal space 6 or 7. Following this, the #28 trocar chest tube was inserted into this right pleural collection. There was a little to no drainage through the tube suggesting that the fluid present was somewhat gelled out at this point. The tube was sutured in place to the skin using 2-0 silk suture. A cut 4x4 was placed around the chest tube and it was secured in place with tape. The chest tube was connected to a Pleur-evac. I will plan to obtain a followup chest x-ray on the patient to check the positioning of the tube. If the tube is in good position in the pleural collection, I will then consider the possibility of instilling tPA and Pulmozyme per the tube. Dictated by... Brandt Fung M.D. RGB/modl Unit #: [id number] #: [id number] Patient: LAURIE UP TD: 07/18/2016 07:25 JOB #: [id number] OPERATIVE REPORT X Brandt Fung MD PROCEDURE OPERATIVE NOTE
--- NOTE | ~2016-07-16 | HP ---
Unit #: [id number] #: [id number] Patient: LAURIE UP [id number] [address] [place], [place] [address] [id number] MR#: [id number] NAME: LAURIE UP ROOM: Age: 60 Sex: F Admission Date: 07/16/2016 : 1955 Attending Physician: Low Mclaughlin M.D. Primary Care Physician: Mikey Knight M.D. HISTORY AND PHYSICAL CHIEF COMPLAINT Shortness of breath. HISTORY OF PRESENT ILLNESS The patient is a 60-year-old female with a history of depression, fibromyalgia and hypertension. She presented to the emergency room complaining of worsening right-sided chest pain and shortness of breath. The patient was seen in the emergency room at the [facility] on Friday with concern of right shoulder pain. The patient was diagnosed with cervical radiculopathy and was discharged home on prednisone. However, the patient stated that she was feeling more pain with shortness of breath and was unable to get up. That brought her to the hospital. The patient also complains of a fever, feeling chills and low-grade fever. The patient denies any history of smoking or any sick contacts. PAST MEDICAL HISTORY 1. History of depression. 2. Fibromyalgia. 3. Hypertension. PAST SURGICAL HISTORY 1. Jaw wired. 2. Tonsillectomy. 3. Tubal ligation. SOCIAL HISTORY No history of smoking. Drinks alcohol occasionally. No history of illicit drug abuse. FAMILY HISTORY Positive for heart disease and cancer. ALLERGIES Penicillin. HOME MEDICATIONS 1. Xanax. 2. Norvasc. 3. Flexeril. 4. Cymbalta. 5. Lopressor. 6. Prilosec. 7. Zocor. 8. Paxil. Unit #: [id number] #: [id number] Patient: LAURIE UP REVIEW OF SYSTEMS Fourteen point review of systems was performed and only pertinent positives are described above. The remaining are negative. PHYSICAL EXAMINATION GENERAL: The patient is lying on a bed, not in acute distress. VITALS: Temperature 98, pule 95, respiratory rate 16, blood pressure 122/65, oxygen saturation 95% on room air. HEENT: Head atraumatic, normocephalic. Pupils equal, round and reactive to light and accommodation. Extraocular movements are intact. Dry mucous membranes. NECK: Supple. No jugular venous distension. LUNGS: Decreased air entry at the bases and rhonchi at the bases. HEART: Regular rate and rhythm. ABDOMEN: Soft. Positive bowel sounds. EXTREMITIES: No cyanosis or clubbing. NEUROLOGIC: Alert, awake and oriented. No gross focal motor deficits. PSYCHIATRIC: Mood and affect are appropriate. DIAGNOSTIC STUDIES IMAGING: Chest x-ray shows worsening airspace density at the right lung base and improving airspace density at the left lung base. There is an increasing right pleural effusion. Findings are concerning for right lower lobe pneumonia with parapneumonic effusion or empyema. CT of the chest shows right lower lobe pleural effusion and multifocal atelectasis. LABORATORY: Glucose 115, BUN 14, creatinine 0.7, sodium 132, potassium 3.2, chloride 94, bicarb 26, calcium 8.6, albumin 3, direct bilirubin 0.5, AST 28, ALT 31, alkaline phosphatase 217 and d-dimer 1768. White blood cell count 15, hemoglobin 10, hematocrit 30.9, platelets 519, neutrophils 78.4%. CARDIOVASCULAR: EKG shows normal sinus rhythm with a rate of 88 beats per minute. NV interval 170. QTC 452. ASSESSMENT 1. Right pleural effusion. Multifocal atelectasis. Concerning for empyema. 2. Multifocal atelectasis. 3. Hyponatremia. 4. Hypokalemia. PLAN Admit the patient to inpatient with telemetry. Continue with IV fluids with normal saline at 75 mL per hour with 20 marjorie KCL. Cardiac diet. Pulmonary consult for thoracocentesis. Continue with IV antibiotics, Rocephin and Zithromax. Repeat labs again in the morning. Follow with lactic to rule out sepsis. Further recommendations to follow. Dictated by Rainer Matamoros/dirk Unit #: [id number] #: [id number] Patient: LAURIE UP TD: 07/16/2016 16:08 JOB #: [id number] HISTORY AND PHYSICAL X X HISTORY AND PHYSICAL
--- NOTE | ~2016-07-16 | CR63 ---
[facility] A Service of [place] [facility] RADIOLOGY TEXT RESULTS PATIENT: LAURIE UP LOCATION: [place] [address] : [birth year] UNIT #: [id number] AGE: [address]: Jamie Son MD SEX: F ORDER DR: [id number] [facility] [address] [place], [place] [address] [id number] I MR#: [id number] Acc #: [id number] NAME: LAURIE UP. : 1955 SEX: F STUDY DATE/TIME: 07/25/2016 5:52 UNIT: [facility] ROOM: [facility] STUDY DESCRIPTION: CR Chest 2 View Attending Physician: Jamie Son M.D. Ordering Physician: Rnoa Elliott A.P.R.N. Primary Care Physician: Mikey Knight M.D. MEDICAL IMAGING REPORT This report is preliminary unless electronic signature is present EXAM PA and lateral chest 2 views 07/25/2016 COMPARISON 07/24/2016 CLINICAL HISTORY Short of air, right shoulder pain, symptoms for about 1.5 weeks. FINDINGS Redemonstrated moderate right effusion. There is no pneumothorax. There is minimal left basilar opacity but the left lung remains essentially normally aerated. No new abnormality when compared to 07/24/2016. Dictated by... Amanuel Isbell M.D. THIS IS AN ELECTRONICALLY VERIFIED REPORT Amanuel sIbell M.D. at 07/25/2016 1:31 PM TEV/bd TD: 07/25/2016 08:31 JOB #: [id number] MEDICAL IMAGING REPORT COPY
--- NOTE | ~2016-07-16 | CR72 ---
[facility] A Service of [facility] RADIOLOGY TEXT RESULTS PATIENT: LAURIE UP LOCATION: [address] : [birth year] UNIT #: [id number] AGE: [address]: Jamie Son MD SEX: F ORDER DR: [id number] [facility] [address] [facility] [facility] [place], [place] [address] [id number] I MR#: [id number] Acc #: [id number] NAME: LAURIE UP. : 1955 SEX: F STUDY DATE/TIME: 07/22/2016 UNIT: [facility] ROOM: [facility] STUDY DESCRIPTION: CR Chest Single View Portable Attending Physician: Maine Lang M.D. Ordering Physician: Maine Lang M.D. Primary Care Physician: Mikey Knight M.D. MEDICAL IMAGING REPORT This report is preliminary unless electronic signature is present EXAM Portable chest 07/22 at 03:40 hours INDICATIONS Shortness of air and right shoulder pain for 6 days. Status post VAT with right chest tube placement. FINDINGS AP portable chest is compared with 07/21/2016. Two right side chest tubes remain in place. No pneumothorax on either side of the chest. There is slight improved aeration at the right lung base. There is continued infiltrate or atelectasis in the right [id number] lung and at the left lung base. Dictated by... Raymundo Singh Jr., M.D. THIS IS AN ELECTRONICALLY VERIFIED REPORT Raymundo Singh Jr., M.D. at 07/22/2016 9:59 PM DEEP/lilibeth TD: 07/22/2016 07:44 JOB #: [id number] MEDICAL IMAGING REPORT COPY
--- NOTE | ~2016-07-16 | CR72 ---
[facility] A Service of [facility] RADIOLOGY TEXT RESULTS PATIENT: LAURIE UP LOCATION: [address] : [birth year] UNIT #: [id number] AGE: [address]: Maine Lang MD SEX: F ORDER DR: [id number] [facility] [address] [facility] [place], [place] [address] [id number] I MR#: [id number] Acc #: [id number] NAME: LAURIE UP : 1955 SEX: F STUDY DATE/TIME: 07/21/2016 04:29 UNIT: [facility] ROOM: [facility] STUDY DESCRIPTION: CR Chest Single View Portable Attending Physician: Maine Lang M.D. Ordering Physician: Rona Elliott A.P.R.N. Primary Care Physician: Mikey Knight M.D. MEDICAL IMAGING REPORT This report is preliminary unless electronic signature is present EXAM Portable chest 07/21/2016 04:29 INDICATIONS Shortness of air and chest pain. Pneumonia. FINDINGS AP portable chest is compared with 07/20/2016. Right chest tube remains in place with the side port near the chest wall. Right pleural effusion is unchanged. There is continued consolidation throughout the right lung. There is minimal infiltrate or atelectasis left lung base. No visible pneumothorax. Dictated by... Raymundo Singh Jr., M.D. THIS IS AN ELECTRONICALLY VERIFIED REPORT Raymundo Singh Jr., M.D. at 07/21/2016 8:39 PM DEEP/sukhdeep TD: 07/21/2016 11:23 JOB #: [id number] MEDICAL IMAGING REPORT COPY
[~2016-07-16 12:37] MED LIST: ACYCLOVIR PO; ALPRAZOLAM PO; CADUET 10 MG/101 TAB PO; CELEXA PO; CYMBALTA PO; FLEXERIL10 M1 PO; HYDROCODONE-APA1 T30 PO; IBUPROFEN PO; LOPRESSOR PO; PROZAC; WELLBUTRIN PO; WELLBUTRIN SR PO
[2016-07-16 13:35] LABS: BASOPHIL# 0.1 X10e3 (0-0.3); BASOPHIL% 0.7 % (0-2.5); EOSINOPHIL# 0.5 X10e3 (0-0.7); EOSINOPHIL% 3.2 % (0.0-7.0); HEMATOCRIT 30.9 % (35.0-45.0); LYMPHOCYTE# 1.6 X10e3 (1.0-3.5); LYMPHOCYTE% 10.8 % (17.0-45.0); MEAN CELL VOLUME 77.3 FL (83-96); MEAN CORPUSCULAR HEMOGLOBIN 25.1 PG (28-34); MEAN CORPUSCULAR HGB CONC 32.5 g/dL (30-36); MEAN PLATELET VOLUME 7.2 FL (6.5-11.5); MONOCYTE% 6.9 % (3.0-12.0); NEUTROPHIL# 11.8 X10e3 (1.5-7.1); NEUTROPHIL% 78.4 % (40-75); PLATELET COUNT 519 X10e3 (140-420); RED BLOOD COUNT 3.99 X10e (3.90-5.30); RED CELL DISTRIBUTION WIDTH 15.6 % (11.0-15.5)
[2016-07-16 13:53] LABS: ALKALINE PHOSPHATASE 217 U/L (32-92); ALT (SGPT) 31 U/L (10-40); AST (SGOT) 28 U/L (10-42); BILIRUBIN, DIRECT 0.5 mg/dL (0.0-0.2); BILIRUBIN,INDIRECT 0.5 mg/dL (0.0-0.9); BLOOD UREA NITROGEN 14 mg/dL (9-23); CALCIUM SERUM 8.6 mg/dL (8.4-10.2); CARBON DIOXIDE 26 mmol/L (22-31); CHLORIDE 94 mmol/L (100-111); CREATININE SERUM 0.7 mg/dL (0.6-1.4); GLOM FILT RATE Estimated ABOVE60 mL/min (>60); GLUCOSE FASTING 116 mg/dL (70-110); POTASSIUM 3.2 mmol/L (3.5-5.1); PROTEIN TOTAL SERUM 7.5 g/dL (6.0-8.3); SODIUM 132 mmol/L (135-145)
[2016-07-16 13:56] LABS: DIFF IND NO
[2016-07-16] MEDS ORDERED: HYDROCODON-ACE1 EAC5 PO (15:31)
[2016-07-16] MEDS ORDERED: PRILOSEC PO (15:32)
[2016-07-16] MEDS ORDERED: ZOCOR20 MG PO (15:32)
[2016-07-16] MEDS ORDERED: PAXIL40 MG PO (15:32)
[2016-07-16 16:00] LABS: ARTERIAL BLD GAS O2 SATURATION 92.1 % (90.0-100.0); ARTERIAL BLOOD GAS CARBOXY HB 0.6 %sat (0.0-9.0); ARTERIAL BLOOD GAS HCO3 27.6 mmol/L; ARTERIAL BLOOD GAS MET HB 0.8 %sat (0.0-2.0); ARTERIAL BLOOD GAS PCO2 41.8 mmHg (35.0-45.0); ARTERIAL BLOOD GAS pH 7.428 (7.350-7.450)
[2016-07-16 16:01] LABS: ARTERIAL BLOOD GAS ALLEN TEST NORMAL; ARTERIAL BLOOD GAS ART SITE LEFT RADIAL; ARTERIAL BLOOD GAS DELIVERY NASAL CANNULA; ARTERIAL BLOOD GAS PO2 68.8 mmHg (80.0-100); ARTERIAL DRAW? YES
[2016-07-17 04:57] LABS: HEMATOCRIT 29.6 % (35.0-45.0); HEMOGLOBIN 9.5 gm/dL (12.0-16.0); MEAN CELL VOLUME 78.1 FL (83-96); MEAN CORPUSCULAR HEMOGLOBIN 25.1 PG (28-34); MEAN CORPUSCULAR HGB CONC 32.1 g/dL (30-36); RED BLOOD COUNT 3.78 X10e (3.90-5.30); RED CELL DISTRIBUTION WIDTH 15.9 % (11.0-15.5)
[2016-07-17 05:33] LABS: BLOOD UREA NITROGEN 11 mg/dL (9-23); BUN/CREATININE RATIO 15.71; CALCIUM SERUM 8.4 mg/dL (8.4-10.2); CARBON DIOXIDE 28 mmol/L (22-31); CHLORIDE 98 mmol/L (100-111); CREATININE SERUM 0.7 mg/dL (0.6-1.4); GLOM FILT RATE Estimated ABOVE60 mL/min (>60); GLUCOSE FASTING 98 mg/dL (70-110); POTASSIUM 3.1 mmol/L (3.5-5.1); SODIUM 134 mmol/L (135-145)
[2016-07-17] MEDS ORDERED: NORVASC10 MG PO (11:41)
[2016-07-17] MEDS ORDERED: BUPROPION HCL200 MG PO (11:42)
[2016-07-17] MEDS ORDERED: FLUOXETINE HCL20 M1 PO (11:43)
[2016-07-17] MEDS ORDERED: SYNTHROID0.05 MG PO (11:44)
[2016-07-17] MEDS ORDERED: IBUPROFEN800 MG PO (11:44)
[2016-07-17 11:47] LABS: PARTIAL THROMBOPLASTIN TIME 29.4 SECONDS (23.5-31.3); PROTHROMBIN TIME (PATIENT) 10.7 SECONDS (9.6-11.5)
[2016-07-17 16:21] LABS: PROTEIN, BODY FLUID 4.6 gm/dL
[2016-07-17 16:48] LABS: BF TOTAL NUCLEATED CELL COUNT 1583 CMM (0-100); BODY FLUID APPEARANCE BLOODY; BODY FLUID RBC 42266 CMM; BODY FLUID SOURCE PLEURAL
[2016-07-18 04:50] LABS: ARTERIAL BLD GAS O2 SATURATION 91.6 % (90.0-100.0); ARTERIAL BLOOD GAS HCO3 26.6 mmol/L; ARTERIAL BLOOD GAS MET HB 0.8 %sat (0.0-2.0); ARTERIAL BLOOD GAS PCO2 43.8 mmHg (35.0-45.0); ARTERIAL BLOOD GAS pH 7.392 (7.350-7.450)
[2016-07-18 04:51] LABS: ARTERIAL BLOOD GAS PO2 70.5 mmHg (80.0-100); ARTERIAL DRAW? YES
[2016-07-18 04:52] LABS: ARTERIAL BLOOD GAS ART SITE LEFT BRACHIAL
[2016-07-18 06:39] LABS: HEMATOCRIT 29.5 % (35.0-45.0); HEMOGLOBIN 9.4 gm/dL (12.0-16.0); MEAN CELL VOLUME 77.9 FL (83-96); MEAN CORPUSCULAR HEMOGLOBIN 24.9 PG (28-34); MEAN PLATELET VOLUME 7.2 FL (6.5-11.5); RED BLOOD COUNT 3.79 X10e (3.90-5.30); RED CELL DISTRIBUTION WIDTH 16.3 % (11.0-15.5); WHITE BLOOD COUNT 20.6 X10e3 (4.0-10.5)
[2016-07-18 06:44] LABS: ALBUMIN SERUM 2.5 g/dL (3.5-5.0); ALKALINE PHOSPHATASE 276 U/L (32-92); ALT (SGPT) 38 U/L (10-40); AST (SGOT) 37 U/L (10-42); BILIRUBIN,TOTAL 1.8 mg/dL (0.2-2.0); BLOOD UREA NITROGEN 13 mg/dL (9-23); BUN/CREATININE RATIO 14.44; CARBON DIOXIDE 25 mmol/L (22-31); CHLORIDE 98 mmol/L (100-111); CREATININE SERUM 0.9 mg/dL (0.6-1.4); GLOM FILT RATE Estimated ABOVE60 mL/min (>60); GLUCOSE FASTING 132 mg/dL (70-110); MAGNESIUM 1.8 mg/dL (1.6-3.0); POTASSIUM 3.1 mmol/L (3.5-5.1); PROTEIN TOTAL SERUM 6.6 g/dL (6.0-8.3); SODIUM 131 mmol/L (135-145)
[2016-07-18 11:30] LABS: ARTERIAL BLOOD GAS DELIVERY NASAL CANNULA
[2016-07-19 07:21] LABS: HEMATOCRIT 28.4 % (35.0-45.0); HEMOGLOBIN 9.2 gm/dL (12.0-16.0); MEAN CORPUSCULAR HEMOGLOBIN 25.1 PG (28-34); MEAN CORPUSCULAR HGB CONC 32.2 g/dL (30-36); MEAN PLATELET VOLUME 7.4 FL (6.5-11.5); RED BLOOD COUNT 3.65 X10e (3.90-5.30); RED CELL DISTRIBUTION WIDTH 16.3 % (11.0-15.5)
[2016-07-19 07:57] LABS: ALBUMIN SERUM 2.4 g/dL (3.5-5.0); ALKALINE PHOSPHATASE 254 U/L (32-92); ALT (SGPT) 29 U/L (10-40); AST (SGOT) 21 U/L (10-42); BILIRUBIN,TOTAL 1.7 mg/dL (0.2-2.0); BLOOD UREA NITROGEN 11 mg/dL (9-23); BUN/CREATININE RATIO 15.71; CALCIUM SERUM 8.8 mg/dL (8.4-10.2); CARBON DIOXIDE 26 mmol/L (22-31); CHLORIDE 97 mmol/L (100-111); CREATININE SERUM 0.7 mg/dL (0.6-1.4); GLOM FILT RATE Estimated ABOVE60 mL/min (>60); GLUCOSE FASTING 94 mg/dL (70-110); POTASSIUM 3.8 mmol/L (3.5-5.1); PROTEIN TOTAL SERUM 6.8 g/dL (6.0-8.3); SODIUM 135 mmol/L (135-145)
[2016-07-20 04:47] LABS: HEMATOCRIT 29.1 % (35.0-45.0); HEMOGLOBIN 9.1 gm/dL (12.0-16.0); MEAN CORPUSCULAR HEMOGLOBIN 24.3 PG (28-34); MEAN CORPUSCULAR HGB CONC 31.2 g/dL (30-36); RED BLOOD COUNT 3.73 X10e (3.90-5.30); RED CELL DISTRIBUTION WIDTH 16.8 % (11.0-15.5); WHITE BLOOD COUNT 23.8 X10e3 (4.0-10.5)
[2016-07-20 04:55] LABS: ALBUMIN SERUM 2.2 g/dL (3.5-5.0); ALKALINE PHOSPHATASE 246 U/L (32-92); ALT (SGPT) 20 U/L (10-40); AST (SGOT) 23 U/L (10-42); BILIRUBIN,TOTAL 1.7 mg/dL (0.2-2.0); BLOOD UREA NITROGEN 11 mg/dL (9-23); BUN/CREATININE RATIO 15.71; CALCIUM SERUM 8.1 mg/dL (8.4-10.2); CARBON DIOXIDE 26 mmol/L (22-31); CHLORIDE 97 mmol/L (100-111); CREATININE SERUM 0.7 mg/dL (0.6-1.4); GLOM FILT RATE Estimated ABOVE60 mL/min (>60); GLUCOSE FASTING 106 mg/dL (70-110); POTASSIUM 4.4 mmol/L (3.5-5.1); PROTEIN TOTAL SERUM 6.3 g/dL (6.0-8.3); SODIUM 130 mmol/L (135-145)
[2016-07-21 04:38] LABS: HEMATOCRIT 26.8 % (35.0-45.0); HEMOGLOBIN 8.8 gm/dL (12.0-16.0); MEAN CELL VOLUME 76.2 FL (83-96); MEAN CORPUSCULAR HEMOGLOBIN 25.1 PG (28-34); MEAN CORPUSCULAR HGB CONC 32.9 g/dL (30-36); RED BLOOD COUNT 3.51 X10e (3.90-5.30); RED CELL DISTRIBUTION WIDTH 16.2 % (11.0-15.5); WHITE BLOOD COUNT 21.6 X10e3 (4.0-10.5)
[2016-07-21 04:52] LABS: INR 1.1; PARTIAL THROMBOPLASTIN TIME 32.6 SECONDS (23.5-31.3); PROTHROMBIN TIME (PATIENT) 11.3 SECONDS (9.6-11.5)
[2016-07-21 04:55] LABS: ALBUMIN SERUM 2.2 g/dL (3.5-5.0); ALKALINE PHOSPHATASE 240 U/L (32-92); ALT (SGPT) 17 U/L (10-40); AST (SGOT) 14 U/L (10-42); BILIRUBIN,TOTAL 1.2 mg/dL (0.2-2.0); BLOOD UREA NITROGEN 12 mg/dL (9-23); CALCIUM SERUM 7.9 mg/dL (8.4-10.2); CARBON DIOXIDE 27 mmol/L (22-31); CHLORIDE 99 mmol/L (100-111); CREATININE SERUM 0.8 mg/dL (0.6-1.4); GLOM FILT RATE Estimated ABOVE60 mL/min (>60); GLUCOSE FASTING 101 mg/dL (70-110); POTASSIUM 3.3 mmol/L (3.5-5.1); PROTEIN TOTAL SERUM 6.8 g/dL (6.0-8.3); SODIUM 132 mmol/L (135-145)
[2016-07-21 15:31] LABS: ARTERIAL BLD GAS O2 SATURATION 97.5 % (90.0-100.0); ARTERIAL BLOOD GAS CARBOXY HB 0.8 %sat (0.0-9.0); ARTERIAL BLOOD GAS HCO3 27.3 mmol/L; ARTERIAL BLOOD GAS MET HB 1.2 %sat (0.0-2.0); ARTERIAL BLOOD GAS PCO2 44.4 mmHg (35.0-45.0); ARTERIAL BLOOD GAS pH 7.397 (7.350-7.450)
[2016-07-21 15:32] LABS: ARTERIAL BLOOD GAS ALLEN TEST NORMAL; ARTERIAL BLOOD GAS ART SITE RIGHT RADIAL; ARTERIAL BLOOD GAS VENT MODE A/C; ARTERIAL DRAW? YES
[2016-07-21 16:02] LABS: BASOPHIL# 0.1 X10e3 (0-0.3); BASOPHIL% 0.6 % (0-2.5); EOSINOPHIL# 0.3 X10e3 (0-0.7); EOSINOPHIL% 1.2 % (0.0-7.0); HEMATOCRIT 28.1 % (35.0-45.0); HEMOGLOBIN 9.1 gm/dL (12.0-16.0); LYMPHOCYTE# 1.3 X10e3 (1.0-3.5); LYMPHOCYTE% 5.8 % (17.0-45.0); MEAN CELL VOLUME 77.2 FL (83-96); MEAN CORPUSCULAR HGB CONC 32.4 g/dL (30-36); MEAN PLATELET VOLUME 7.1 FL (6.5-11.5); MONOCYTE# 0.8 X10e3 (0-1.0); MONOCYTE% 3.8 % (3.0-12.0); NEUTROPHIL# 19.5 X10e3 (1.5-7.1); NEUTROPHIL% 88.6 % (40-75); PLATELET COUNT 541 X10e3 (140-420); RED BLOOD COUNT 3.64 X10e (3.90-5.30); RED CELL DISTRIBUTION WIDTH 16.3 % (11.0-15.5)
[2016-07-21 16:03] LABS: DIFF IND YES
[2016-07-21 16:04] LABS: ANISOCYTOSIS SL; PLATELET ESTIMATE INCREASED (NORMAL); POIKILOCYTOSIS SL
[2016-07-21 16:24] LABS: BLOOD UREA NITROGEN 12 mg/dL (9-23); CALCIUM SERUM 8.2 mg/dL (8.4-10.2); CARBON DIOXIDE 26 mmol/L (22-31); CHLORIDE 97 mmol/L (100-111); CREATININE SERUM 0.8 mg/dL (0.6-1.4); GLOM FILT RATE Estimated ABOVE60 mL/min (>60); GLUCOSE FASTING 124 mg/dL (70-110); POTASSIUM 4.4 mmol/L (3.5-5.1); SODIUM 134 mmol/L (135-145)
[2016-07-21 17:09] LABS: ARTERIAL BLD GAS O2 SATURATION 96.8 % (90.0-100.0); ARTERIAL BLOOD GAS CARBOXY HB 0.6 %sat (0.0-9.0); ARTERIAL BLOOD GAS HCO3 27.8 mmol/L; ARTERIAL BLOOD GAS MET HB 0.7 %sat (0.0-2.0); ARTERIAL BLOOD GAS PCO2 42.5 mmHg (35.0-45.0); ARTERIAL BLOOD GAS pH 7.423 (7.350-7.450)
[2016-07-21 17:12] LABS: ARTERIAL BLOOD GAS ART SITE RIGHT RADIAL; ARTERIAL BLOOD GAS DELIVERY VENT; ARTERIAL BLOOD GAS VENT MODE AC; ARTERIAL DRAW? YES
[2016-07-21 19:52] LABS: ARTERIAL BLD GAS O2 SATURATION 95.6 % (90.0-100.0); ARTERIAL BLOOD GAS CARBOXY HB 0.9 %sat (0.0-9.0); ARTERIAL BLOOD GAS HCO3 27.1 mmol/L; ARTERIAL BLOOD GAS PCO2 39.1 mmHg (35.0-45.0)
[2016-07-21 19:53] LABS: ARTERIAL BLOOD GAS ALLEN TEST NORMAL; ARTERIAL BLOOD GAS ART SITE LEFT RADIAL; ARTERIAL BLOOD GAS DELIVERY VENT; ARTERIAL BLOOD GAS VENT MODE CPAP; ARTERIAL DRAW? YES
[2016-07-22 04:07] LABS: ARTERIAL BLD GAS O2 SATURATION 91.1 % (90.0-100.0); ARTERIAL BLOOD GAS CARBOXY HB 0.9 %sat (0.0-9.0); ARTERIAL BLOOD GAS HCO3 28.6 mmol/L; ARTERIAL BLOOD GAS MET HB 0.2 %sat (0.0-2.0); ARTERIAL BLOOD GAS PCO2 38.5 mmHg (35.0-45.0); ARTERIAL BLOOD GAS pH 7.479 (7.350-7.450)
[2016-07-22 04:10] LABS: ARTERIAL BLOOD GAS ALLEN TEST NORMAL; ARTERIAL BLOOD GAS ART SITE RIGHT RADIAL; ARTERIAL BLOOD GAS DELIVERY NASAL CANNULA; ARTERIAL BLOOD GAS PO2 63.3 mmHg (80.0-100); ARTERIAL DRAW? YES
[2016-07-22 08:33] LABS: BLOOD UREA NITROGEN 9 mg/dL (9-23); CALCIUM SERUM 8.1 mg/dL (8.4-10.2); CARBON DIOXIDE 25 mmol/L (22-31); CHLORIDE 101 mmol/L (100-111); CREATININE SERUM 0.6 mg/dL (0.6-1.4); GLOM FILT RATE Estimated ABOVE60 mL/min (>60); GLUCOSE FASTING 148 mg/dL (70-110); POTASSIUM 3.9 mmol/L (3.5-5.1); SODIUM 134 mmol/L (135-145)
[2016-07-23 04:19] LABS: BASOPHIL# 0.2 X10e3 (0-0.3); BASOPHIL% 0.9 % (0-2.5); EOSINOPHIL# 0.6 X10e3 (0-0.7); EOSINOPHIL% 3.1 % (0.0-7.0); HEMATOCRIT 26.3 % (35.0-45.0); HEMOGLOBIN 8.4 gm/dL (12.0-16.0); LYMPHOCYTE# 3.1 X10e3 (1.0-3.5); MEAN CELL VOLUME 76.6 FL (83-96); MEAN CORPUSCULAR HEMOGLOBIN 24.6 PG (28-34); MEAN CORPUSCULAR HGB CONC 32.1 g/dL (30-36); MONOCYTE# 1.3 X10e3 (0-1.0); NEUTROPHIL# 15.6 X10e3 (1.5-7.1); PLATELET COUNT 630 X10e3 (140-420); RED BLOOD COUNT 3.43 X10e (3.90-5.30); RED CELL DISTRIBUTION WIDTH 16.6 % (11.0-15.5); WHITE BLOOD COUNT 20.8 X10e3 (4.0-10.5)
[2016-07-23 04:20] LABS: DIFF IND NO
[2016-07-23 04:37] LABS: BLOOD UREA NITROGEN 10 mg/dL (9-23); BUN/CREATININE RATIO 14.28; CALCIUM SERUM 7.8 mg/dL (8.4-10.2); CARBON DIOXIDE 27 mmol/L (22-31); CHLORIDE 100 mmol/L (100-111); CREATININE SERUM 0.7 mg/dL (0.6-1.4); GLOM FILT RATE Estimated ABOVE60 mL/min (>60); GLUCOSE FASTING 105 mg/dL (70-110); MAGNESIUM 2.1 mg/dL (1.6-3.0); POTASSIUM 3.3 mmol/L (3.5-5.1); SODIUM 132 mmol/L (135-145)
[2016-07-25 05:49] LABS: BASOPHIL# 0.1 X10e3 (0-0.3); BASOPHIL% 0.6 % (0-2.5); EOSINOPHIL# 0.7 X10e3 (0-0.7); EOSINOPHIL% 4.1 % (0.0-7.0); HEMATOCRIT 24.8 % (35.0-45.0); LYMPHOCYTE# 2.7 X10e3 (1.0-3.5); LYMPHOCYTE% 15.3 % (17.0-45.0); MEAN CELL VOLUME 77.2 FL (83-96); MEAN CORPUSCULAR HGB CONC 32.4 g/dL (30-36); MEAN PLATELET VOLUME 7.2 FL (6.5-11.5); MONOCYTE# 1.1 X10e3 (0-1.0); PLATELET COUNT 602 X10e3 (140-420); RED BLOOD COUNT 3.22 X10e (3.90-5.30); RED CELL DISTRIBUTION WIDTH 16.6 % (11.0-15.5); WHITE BLOOD COUNT 17.6 X10e3 (4.0-10.5)
[2016-07-25 05:51] LABS: DIFF IND YES
[2016-07-25 06:33] LABS: ANISOCYTOSIS MOD; HYPOCHROMIA SL; PLATELET ESTIMATE INCREASED (NORMAL)
[2016-07-25 06:34] LABS: MICROCYTOSIS MOD; POLYCHROMASIA SL
[2016-07-25 07:06] LABS: BLOOD UREA NITROGEN 12 mg/dL (9-23); CALCIUM SERUM 8.6 mg/dL (8.4-10.2); CARBON DIOXIDE 25 mmol/L (22-31); CHLORIDE 98 mmol/L (100-111); CREATININE SERUM 0.8 mg/dL (0.6-1.4); GLOM FILT RATE Estimated ABOVE60 mL/min (>60); GLUCOSE FASTING 131 mg/dL (70-110); POTASSIUM 3.8 mmol/L (3.5-5.1); SODIUM 136 mmol/L (135-145)
[2016-07-26 06:47] LABS: MAGNESIUM 2.1 mg/dL (1.6-3.0); POTASSIUM 3.6 mmol/L (3.5-5.1)
[2016-07-26] MEDS ORDERED: AMOX TR-K CLV 81 TA1 PO (12:20)
== END 2016-07-26 17:44 | disposition home health service (06) | DRG 163 ==
LOC: CED 12:37 → CEDOF 16:31 → C2A 20:39 → C3A PCU 20:40 → C2A 07-21 15:40 → CICCU3 07-21 15:47 → C5B 07-24 15:15
PROVIDERS: Emergency Medicine; Family Medicine; Internal Medicine; Internal Medicine Pulmonary Disease; Nurse Practitioner; Surgery
PROC: 0W9930Z Drainage of Right Pleural Cavity with Drainage Device, Percutaneous Approach (ICD-10-PCS; 2016-07-17)
PROC: 0W993ZX Drainage of Right Pleural Cavity, Percutaneous Approach, Diagnostic (ICD-10-PCS; 2016-07-17)
PROC: B24BYZZ Ultrasonography of Heart with Aorta using Other Contrast (ICD-10-PCS; 2016-07-18)
PROC: 3E04317 Introduction of Other Thrombolytic into Central Vein, Percutaneous Approach (ICD-10-PCS; 2016-07-19)
PROC: 0BDN4ZZ Extraction of Right Pleura, Percutaneous Endoscopic Approach (ICD-10-PCS; 2016-07-21)
PROC: 5A1945Z Respiratory Ventilation, 24-96 Consecutive Hours (ICD-10-PCS; 2016-07-21)
PROC: 0BJ08ZZ Inspection of Tracheobronchial Tree, Via Natural or Artificial Opening Endoscopic (ICD-10-PCS; principal; 2016-07-21 13:00)
DX: J18.9 Pneumonia, unspecified organism (principal); J96.01 Acute respiratory failure with hypoxia; J86.9 Pyothorax without fistula; Z68.41 Body mass index [BMI] 40.0-44.9, adult; J90 Pleural effusion, not elsewhere classified; E87.1 Hypo-osmolality and hyponatremia; R13.10 Dysphagia, unspecified; E66.01 Morbid (severe) obesity due to excess calories; J98.11 Atelectasis; E87.6 Hypokalemia; F32.9 Major depressive disorder, single episode, unspecified; I10 Essential (primary) hypertension; M79.7 Fibromyalgia; M54.12 Radiculopathy, cervical region; Z88.0 Allergy status to penicillin; Z98.51 Tubal ligation status; J44.9 Chronic obstructive pulmonary disease, unspecified; B95.5 Unspecified streptococcus as the cause of diseases classified elsewhere
CPT/HCPCS: 36415; 36600; 71010; 71020; 71250; 71275; 80048; 80053; 80076; 80202; 82607; 82803; 83036; 83605; 83615; 83735; 83986; 84132; 84157; 84443; 85025; 85027; 85379; 85610; 85730; 86850; 86900; 86901; 86923; 87040; 87070; 87075; 87102; 87116; 87205; 87206; 88108; 88305; 89051; 93005; 93306; 94002; 94010; 94640; 94660; 94760; 96374; 97110; 97116; 97162; 97166; 97530; 97535; 99291; G0238; J0330; J0456; J0692; J0696; J1100; J1170; J1644; J1885; J1940; J2250; J2270; J2370; J2405; J2997; J3010; J3370; J3475; Q9967

== ENCOUNTER → 2016-08-07 | Outpatient (CLI) | payer OTHER ==
[~2016-08-07] MED LIST changes: +AMOX TR-K CLV 81 TA1 PO; +BUPROPION HCL200 MG PO; +FLUOXETINE HCL20 M1 PO; +HYDROCODON-ACE1 EAC5 PO; +IBUPROFEN800 MG PO; +NORVASC10 MG PO; +PAXIL40 MG PO; +PRILOSEC PO; +SYNTHROID0.05 MG PO; +ZOCOR20 MG PO
--- NOTE | ~2016-08-07 | CR63 ---
[facility] A Service of [facility] RADIOLOGY TEXT RESULTS PATIENT: LAURIE UP [id number] : [birth year] UNIT #: [id number] AGE: [address]: Jamie Son MD SEX: F ORDER DR: [id number] [facility] [address] [place], [place] [address] [id number] MR#: [id number] Acc #: [id number] NAME: LAURIE UP. : 1955 SEX: F STUDY DATE/TIME: 08/07/2016 12:48 UNIT: [facility] ROOM: STUDY DESCRIPTION: CR Chest 2 View Attending Physician: Jamie Son M.D. Ordering Physician: Jamie Son M.D. Primary Care Physician: Hari Gonzalez M.D. MEDICAL IMAGING REPORT This report is preliminary unless electronic signature is present EXAM PA and lateral chest. DATE OF EXAM 08/07/2016 at 12:48. HISTORY Shortness of breath with history of emphysema. Symptoms present for a couple of days per patient. Hypertension. COMPARISON PA and lateral chest radiograph, 07/26/2016. CT chest without contrast 07/18/2016. FINDINGS Small to moderate sized right pleural effusion with right middle and right lower lobe airspace disease may be slightly improved. Left lung appears clear. Left basilar atelectasis described on previous study has resolved. Heart size within normal limits. No pneumothorax. IMPRESSION 1. Stable small to moderate right pleural effusion compared to the 07/26/2016 plain film. The right middle and right lower lobe airspace disease is slightly improved, although, some persists. 2. Resolution of left basilar atelectasis since prior exam. Dictated by... Tri Irby M.D. THIS IS AN ELECTRONICALLY VERIFIED REPORT Tri Irby M.D. at 08/08/2016 11:56 AM LLH/jt [facility] A Service of [facility] RADIOLOGY TEXT RESULTS PATIENT: LAURIE UP LOCATION: [facility] #: [id number] : [birth year] UNIT #: [id number] AGE: [address]: Jamie Son MD SEX: F ORDER DR: TD: 08/07/2016 17:25 JOB #: [id number] MEDICAL IMAGING REPORT COPY
== END | disposition home or self-care (01) ==
LOC: CRAD 12:24
DX: J43.9 Emphysema, unspecified (principal); J90 Pleural effusion, not elsewhere classified; J98.4 Other disorders of lung
CPT/HCPCS: 71020

== ENCOUNTER → 2016-09-03 | Outpatient (CLI) | payer OTHER ==
--- NOTE | ~2016-09-03 | CT57 ---
[facility] A Service of [facility] RADIOLOGY TEXT RESULTS PATIENT: LAURIE UP LOCATION: [facility] : 57 UNIT #: [id number] AGE: [address]: Cher Calderon MD SEX: F ORDER DR: [id number] [place] [id number] [facility]. [place], [place] [address] [id number] O MR#: [id number] Acc #: [id number] NAME: LAURIE UP. : 1955 SEX: F STUDY DATE/TIME: 09/03/2016 13:56 UNIT: [facility] ROOM: STUDY DESCRIPTION: CT Chest Wo Cont Attending Physician: Cher Calderon M.D. Ordering Physician: Cher Calderon M.D. Primary Care Physician: Hari Gonzalez M.D. MEDICAL IMAGING REPORT This report is preliminary unless electronic signature is present EXAM CT chest. INDICATION Pulmonary nodules. Shortness of air for [address] of the chest without contrast. Coronal and sagittal reconstructions were obtained. This CT exam was performed with one or more of the following radiation dose reduction techniques: automatic exposure control, adjustment of mA and/or kV according to patient size, and iterative reconstruction. COMPARISON CT thorax dated 07/18/2016. FINDINGS There is a small right pleural effusion. This has significantly improved from the 07/18/2016 exam. There are some linear areas of scarring or atelectasis in the right lung, however, overall aeration of the right lung has significantly improved. Central airways are patent. The left lung is clear. There are no pathologically enlarged mediastinal or hilar lymph nodes. No thoracic aortic aneurysm. No pericardial effusion. Limited images upper abdomen were obtained. There is a benign cyst in the superior pole right kidney. No acute osseous abnormalities. IMPRESSION [facility] A Service [facility] RADIOLOGY TEXT RESULTS PATIENT: LAURIE UP LOCATION: [facility] : 57 UNIT #: [id number] AGE: [address]: Cher Calderon MD SEX: F ORDER DR: 1. Small right pleural effusion. This has significantly decreased since the 07/18/2016 exam. 2. Linear areas of scarring or atelectasis in the lower portion of the right lung. The aeration of the right lung has significantly improved from the prior study. Dictated by... Kaleb Temple M.D. THIS IS AN ELECTRONICALLY VERIFIED REPORT Kaleb Temple M.D. at 09/03/2016 7:47 PM RPC/dalton TD: 09/03/2016 17:23 JOB #: [id number] MEDICAL IMAGING REPORT Page 1 of 1 COPY
== END | disposition home or self-care (01) ==
LOC: CCAT 13:07
DX: R91.8 Other nonspecific abnormal finding of lung field (principal); J90 Pleural effusion, not elsewhere classified
CPT/HCPCS: 71250